=== PATIENT | female | born 1985 | race Caucasian/White ===

== ENCOUNTER 2018-11-27 08:12 | Day surgery (SDC) | payer BC ==
[2018-11-27] MEDS: LACTATED RINGER'S 1,000 ML IV (09:26)
[2018-11-27] MEDS: CEFAZOLIN 2 GM/50 ML (PMX) 50 ML IVPB (09:30)
[2018-11-27] MEDS ORDERED: GELATIN SIZE 100 SPONGE (10:39)
[2018-11-27] MEDS ORDERED: ROCURONIUM 50 MG INJ (10:50)
[2018-11-27] MEDS ORDERED: PROPOFOL 20 ML (10:50)
[2018-11-27] MEDS ORDERED: MIDAZOLAM 1 MG/ML 2 ML INJ (10:50)
[2018-11-27] MEDS ORDERED: BISACODYL 10 MG SUPP PR (11:00)
[2018-11-27] MEDS ORDERED: AL HYDROX/MG HYDROX/SIMETH 30 ML CUP PO (11:00)
[2018-11-27] MEDS ORDERED: MEPERIDINE 25 MG INJ IV (11:00)
[2018-11-27] MEDS ORDERED: hydrALAzine 20 MG INJ IV (11:00)
[2018-11-27] MEDS ORDERED: DIPHENHYDRAMINE 25 MG CAP PO (11:00)
[2018-11-27] MEDS ORDERED: HYDROmorphONE 0.5 MG/0.5 ML SYG IV (11:00)
[2018-11-27] MEDS ORDERED: HYDROCODONE/APAP (10/325) TAB PO (11:00)
[2018-11-27] MEDS ORDERED: LABETALOL HCL 20MG INJ IV (11:00)
[2018-11-27] MEDS ORDERED: ACETAMINOPHEN 325 MG TAB PO (11:00)
[2018-11-27] MEDS ORDERED: HYDROmorphONE 1 MG/5 ML IV SYRINGE IV ×2 (11:00)
[2018-11-27] MEDS ORDERED: CEFAZOLIN 1 GM/50 ML (PMX) 50 ML IVPB (11:00)
[2018-11-27] MEDS ORDERED: OXYCODONE/ACETAMINOPHEN (5/325) TAB PO ×2 (11:00)
[2018-11-27] MEDS ORDERED: CEFAZOLIN 1 GM INJ (11:00)
[2018-11-27] MEDS ORDERED: FENTAnyl 50 MCG/ML VIAL IV ×3 (11:00)
[2018-11-27] MEDS ORDERED: NALOXONE (0.4 MG/ML) INJ IV (11:00)
[2018-11-27] MEDS ORDERED: SEVOFLURANE 15 MIN (11:00)
[2018-11-27] MEDS ORDERED: CEPASTAT LOZENGE MT (11:00)
[2018-11-27] MEDS ORDERED: DIPHENHYDRAMINE 50 MG INJ IV ×2 (11:00)
[2018-11-27] MEDS ORDERED: EPHEDrine 25 MG/5 ML SYG IV (11:00)
[2018-11-27] MEDS ORDERED: CYCLOBENZAPRINE 10 MG TAB PO (11:00)
[2018-11-27] MEDS ORDERED: METOCLOPRAMIDE 10 MG INJ IV (11:00)
[2018-11-27] MEDS ORDERED: ONDANSETRON 4 MG INJ IV ×2 (11:00)
[2018-11-27] MEDS ORDERED: LABETALOL HCL 20MG INJ (11:48)
[2018-11-27] MEDS ORDERED: ONDANSETRON 4 MG INJ (11:48)
[2018-11-27] MEDS ORDERED: DEXAMETHASONE 4 MG/ML 5 ML INJ (11:48)
[2018-11-27] MEDS ORDERED: METOCLOPRAMIDE 10 MG INJ (11:48)
[2018-11-27] MEDS ORDERED: SUGAMMADEX SODIUM 200 MG/2 ML VIAL IV (11:49)
[2018-11-27] MEDS ORDERED: SUCCINYLCHOLINE CHLORIDE 100 MG/5 ML SYG IV (11:49)
[2018-11-27] MEDS: BUPIVACAINE 0.25%/EPI (SDV) 30 ML INJ (12:00)
[2018-11-27] MEDS: SURGIFOAM POWDER 1 GM KIT (12:00)
[2018-11-27] MEDS: THROMBIN (BOVINE) 5,000 UNIT VIAL TP ×2 (12:01→12:22)
[2018-11-27] MEDS: POLYMYXIN/BACITRACIN 1L IRRIG (12:01)
[2018-11-27] MEDS: CA CHLORIDE 10% 10 ML SYRINGE (12:01)
[2018-11-27] MEDS: HEPARIN 1000 UNITS/ML 10 ML INJ (12:02)
[2018-11-27] MEDS: HYDROmorphONE 1 MG/5 ML IV SYRINGE IV (14:15)
[2018-11-27] MEDS: D5W-0.45 NACL + KCL 20 MEQ 1,000 ML IV ×2 (16:30→17:57)
[2018-11-27] MEDS: CEFAZOLIN 1 GM/50 ML (PMX) 50 ML IVPB (19:44)
[2018-11-27] MEDS: HYDROCODONE/APAP (10/325) TAB PO (20:29)
[2018-11-27] MEDS: DOCUSATE SODIUM 100 MG CAP PO (20:29)
[2018-11-28] MEDS: D5W-0.45 NACL + KCL 20 MEQ 1,000 ML IV ×2 (03:39→03:43)
[2018-11-28] MEDS: CEFAZOLIN 1 GM/50 ML (PMX) 50 ML IVPB ×2 (03:40→11:46)
[2018-11-28 05:40] LABS: ADD MAN DIFF? NO
[2018-11-28 05:46] LABS: WHITE BLOOD COUNT 18.8 10^3/ul (4.8-10.8)
[2018-11-28 05:46] LABS: BASOPHILS % 0.2 % (0.0-2.0); HEMATOCRIT 35.8 % (37.0-47.0); HEMOGLOBIN 11.9 g/dl (12.0-16.0); LYMPHOCYTES # 1.1 10^3/ul (0.8-2.9); LYMPHOCYTES % 5.6 % (15.0-51.0); MEAN CORPUSCULAR HEMOGLOBIN 29.8 pg (29.0-33.0); MEAN CORPUSCULAR HGB CONC 33.2 g/dl (32.0-37.0); MEAN CORPUSCULAR VOLUME 89.7 fl (82.0-101.0); MEAN PLATELET VOLUME 8.8 fl (7.4-10.4); MONOCYTE # 0.9 10^3/ul (0.3-0.9); MONOCYTES % 4.5 % (0.0-11.0); NEUTROPHIL # 16.7 10^3/ul (1.6-7.5); NEUTROPHILS % 89.1 % (39.0-77.0); PLATELET COUNT 540 10^3/UL (140-415); RED BLOOD COUNT 3.99 10^6/ul (4.20-5.40); RED CELL DISTRIBUTION WIDTH 11.6 % (11.5-14.5)
[2018-11-28 06:35] LABS: ANION GAP 14 (5-13); BLOOD UREA NITROGEN 11 mg/dl (7-20); CALCIUM 8.9 mg/dl (8.4-10.2); CARBON DIOXIDE 26 mmol/L (21-31); CHLORIDE 102 mmol/L (97-110); CREATININE 0.53 mg/dl (0.44-1.00); Estimated GFR > 60 mL/min (>60); GLUCOSE 155 mg/dl (70-220); POTASSIUM 4.1 mmol/L (3.5-5.1); SODIUM 142 mmol/L (135-144)
[2018-11-28] MEDS: DOCUSATE SODIUM 100 MG CAP PO (08:26)
[2018-11-28] MEDS: HYDROCODONE/APAP (10/325) TAB PO ×2 (08:27→13:09)
== END 2018-11-28 15:50 | disposition home or self-care (01) ==
LOC: SDS 08:12 → MS1 16:19
DX: M51.16 Intervertebral disc disorders with radiculopathy, lumbar region (principal); I10 Essential (primary) hypertension
CPT/HCPCS: 63030; 72100; 80048; 83735; 84703; 85025; 86999; 88304; 97110; 97116; 97161; 97530